=== PATIENT | female | born 1950 | race Caucasian/White ===

== ENCOUNTER 2017-03-09 08:25 | Inpatient (IN) | payer MEDICARE, BC ==
[~2017-03-09] VITALS: Ht 167.6 cm; Wt 96.0 kg
[2017-03-09 08:27] VITALS: BP 175/81; PULSE 101; RESP 18; TEMP 99.3; O2SAT 98
[2017-03-09] MEDS ORDERED: CLAR10CA3 PO (08:33)
[2017-03-09] MEDS ORDERED: ADVA115A INH (08:33)
[2017-03-09] MEDS ORDERED: VENTAER INH (08:33)
[2017-03-09] MEDS ORDERED: LOSA50TA2 PO (08:33)
[2017-03-09 08:39] VITALS: BP 145/70; PULSE 98; RESP 17; O2SAT 97
[2017-03-09] MEDS ORDERED: ONDANSETRON HCL 4 MG/2 ML VIAL IVP ONE (08:45)
[2017-03-09] MEDS ORDERED: MORPHINE SULFATE 4 MG/ML INJ IV PUSH ONE ×2 (08:45→11:45)
--- NOTE | 2017-03-09 08:50 | PD ---
HPI Chief Complaint: GI Complaint Time Seen by Provider: 08:39 Travel History International Travel<30 days: No Contact w/Intl Traveler<30days: No Traveled to known affect area: No History of Present Illness HPI 66yo F with PMH of HTN, asthma, diverticulitis presents to the ED with c/o abdominal pain since yesterday. Pain started more periumbilical and now it is in the right upper and right lower abdomen. Associated with nausea. [place] warm but didnt have fever. Had diverticulitis in May and felt similar. Pain is sharp, constant, worst today. Denies any chest pain, sob, vomiting, dysuria, hematuria, diarrhea, vaginal bleeding or discharge. Pt had and partial hysterectomy for fibroids. PFSH Past Medical History Asthma: Yes Hypertension: Yes Past Surgical History Section: Yes (X1) Hysterectomy: Yes (PARTIAL) Social History Alcohol Use: No Tobacco Use: No Substance Use: No Allergies-Medications (Allergen,Severity, Reaction): Coded Allergies: No Known Allergies (Unverified , 03/09/17) Reported Meds & Prescriptions Reported Meds & Active Scripts Active [place] (Hydrocodone-Acetaminophen) 7.5-325 mg Tab 1-2 Tab PO Q4H PRN Reported Ventolin Hfa 18 GM Inh (Albuterol Sulfate) 90 Mcg/Act Aer 2 Puff INH Q4H PRN Losartan-Hydrochlorothiazide 50-12.5 Mg Tab 1 Tab PO DAILY Claritin (Loratadine) 10 Mg Cap 10 Mg PO DAILY Advair Hfa 12 GM Inh (Fluticasone-Salmeterol 12 GM Inh) 115-21 Mcg/Act Aer 2 Puff INH BID Review of Systems Except as stated in HPI: all other systems reviewed are Neg Physical Exam Narrative GENERAL: 66yo F in mild distress. SKIN: Focused skin assessment warm/dry. HEAD: Atraumatic. Normocephalic. CARDIOVASCULAR: Regular rate and rhythm. No murmur appreciated. RESPIRATORY: No accessory muscle use. Clear to auscultation. Breath sounds equal bilaterally. GASTROINTESTINAL: Abdomen soft, +TTP Epigastric, RLQ, RUQ. No rebound tenderness or guarding. MUSCULOSKELETAL: No obvious deformities. No clubbing. No cyanosis. No edema. NEUROLOGICAL: Awake and alert. No obvious cranial nerve deficits. Motor grossly within normal limits. Normal speech. PSYCHIATRIC: Appropriate mood and affect; insight and judgment normal. Data Data Last Documented VS Vital Signs Date Time Temp Pulse Resp B/P (MAP) Pulse Ox O2 Delivery O2 Flow Rate FiO2 03/09/17 08:39 98 17 145/70 (95) 97 Room Air 03/09/17 08:27 99.3 Orders Orders Complete Blood Count With Diff (03/09/17 08:45) Comprehensive Metabolic Panel (03/09/17 08:45) Lipase (03/09/17 08:45) Prothrombin Time / Inr (Pt) (03/09/17 08:45) Act Partial Throm Time (Ptt) (03/09/17 08:45) Urinalysis - C+S If Indicated (03/09/17 08:45) Ct Abd/Pel W Iv Contrast(Rout) (03/09/17 08:45) Morphine Inj (Morphine Inj) (03/09/17 08:45) Ondansetron Inj (Zofran Inj) (03/09/17 08:45) Electrocardiogram (03/09/17 ) Iohexol 350 Inj (Omnipaque 350 Inj) (03/09/17 10:15) Sodium Chlor 0.9% 1000 Ml Inj (Ns 1000 M (03/09/17 11:00) NPO (03/09/17 11:29) Piperacil-Tazo 3.375 Gm Premix (Zosyn 3. (03/09/17 11:45) Morphine Inj (Morphine Inj) (03/09/17 11:45) Consult General Surgery (03/09/17 ) Admit Order (Ed Use Only) (03/09/17 12:18) Labs Laboratory Tests Test 03/09/17 08:44 03/09/17 10:45 White Blood Count 14.1 TH/MM3 Red Blood Count 5.63 MIL/MM3 Hemoglobin 16.7 GM/DL Hematocrit 47.8 % Mean Corpuscular Volume 84.9 FL Mean Corpuscular Hemoglobin 29.7 PG Mean Corpuscular Hemoglobin Concent 35.0 % Red Cell Distribution Width 13.6 % Platelet Count 256 TH/MM3 Mean Platelet Volume 8.6 FL Neutrophils (%) (Auto) 88.0 % Lymphocytes (%) (Auto) 7.9 % Monocytes (%) (Auto) 3.6 % Eosinophils (%) (Auto) 0.1 % Basophils (%) (Auto) 0.4 % Neutrophils # (Auto) 12.4 TH/MM3 Lymphocytes # (Auto) 1.1 TH/MM3 Monocytes # (Auto) 0.5 TH/MM3 Eosinophils # (Auto) 0.0 TH/MM3 Basophils # (Auto) 0.1 TH/MM3 CBC Comment DIFF FINAL Differential Comment Prothrombin Time 11.0 SEC Prothromb Time International Ratio 1.1 RATIO Activated Partial Thromboplast Time 27.4 SEC Blood Urea Nitrogen 9 MG/DL Creatinine 0.95 MG/DL Random Glucose 129 MG/DL Total Protein 7.9 GM/DL Albumin 4.0 GM/DL Calcium Level 9.3 MG/DL Alkaline Phosphatase 93 U/L Aspartate Amino Transf (AST/SGOT) 12 U/L Alanine Aminotransferase (ALT/SGPT) 32 U/L Total Bilirubin 1.0 MG/DL Sodium Level 137 MEQ/L Potassium Level 3.4 MEQ/L Chloride Level 103 MEQ/L Carbon Dioxide Level 25.8 MEQ/L Anion Gap 8 MEQ/L Estimat Glomerular Filtration Rate 59 ML/MIN Lipase 70 U/L Urine Color LIGHT-YELLOW Urine Turbidity CLEAR Urine pH 7.5 Urine Specific [place] GREATER THAN 1.050 Urine Protein TRACE mg/dL Urine Glucose (UA) NEG mg/dL Urine Ketones NEG mg/dL Urine Occult Blood NEG Urine Nitrite NEG Urine Bilirubin NEG Urine Urobilinogen LESS THAN 2.0 MG/DL Urine Leukocyte Esterase SMALL Urine RBC 1 /hpf Urine WBC 2 /hpf Urine Squamous Epithelial Cells 14 /hpf Microscopic Urinalysis Comment CULT NOT INDICATED MDM Medical Decision Making Medical Screen Exam Complete: Yes Emergency Medical Condition: Yes Interpretation(s) EKG: NSR 84bpm. 1st AV block. Q waves III, aVF. No ST segment elevation or depression. Differential Diagnosis Appendicitis vs. diverticulitis vs. cholecystitis vs. pancreatitis vs. peptic ulcer disease Narrative Course 66yo F with abdominal pain since yesterday. Started in periumbilical region and now it is in the right lower abdomen. Labs reviewed, leukocytosis at 14.1. Elevated H/H. Lipase normal. LFTs normal. UA negative. CT a/p showed abnormal appendix diagnostic of acute appendicitis. There is also a left ovarian cyst, pt informed to follow up with [facility] there. Pt given zofran and morphine and reevaluated at bedside. Still with pain so given another dose of morphine and also NS IVF and zosyn. Discussed with Dr. Garcia and he will see the patient today. Discussed with resident physician and admitted to Dr. Trujillo's service. Diagnosis Primary Impression: Acute appendicitis Qualified Codes: K35.80 - Unspecified acute appendicitis Admitting Information Admitting Physician Requests: Admit Scripts Hydrocodone-Acetaminophen ([place]) 7.5-325 mg Tab 1-2 TAB PO Q4H Y for PAIN, #30 TAB 0 Refills Prov: Chalino Garcia MD 03/09/17 Lisy Greco DO Mar 09, 2017 08:50
[2017-03-09 09:11] LABS: AUTOMATED NEUTROPHIL # 12.4 TH/MM3 (1.8-7.7); BASOPHIL # 0.1 TH/MM3 (0-0.2); BASOPHIL % 0.4 % (0.0-2.0); EOSINOPHIL % 0.1 % (0.0-4.0); HEMATOCRIT 47.8 % (35.0-46.0); HEMO FLAGS DIFF FINAL; LYMPH % 7.9 % (9.0-44.0); LYMPHOCYTE # 1.1 TH/MM3 (1.0-4.8); MEAN CELL VOLUME 84.9 FL (80.0-100.0); MEAN CORPUSCULAR HEMOGLOBIN 29.7 PG (27.0-34.0); MONO % 3.6 % (0.0-8.0); PLATELET COUNT 256 TH/MM3 (150-450); RED BLOOD COUNT 5.63 MIL/MM3 (4.00-5.30); RED CELL DISTRIBUTION WIDTH 13.6 % (11.6-17.2); WHITE BLOOD COUNT 14.1 TH/MM3 (4.0-11.0)
[2017-03-09 09:17] LABS: APTT (PATIENT) 27.4 SEC (24.3-30.1); INTERNATIONAL NORMALIZED RATIO 1.1 RATIO
[2017-03-09 09:27] LABS: ANION GAP 8 MEQ/L (5-15); AST (GOT) 12 U/L (15-37); BICARBONATE 25.8 MEQ/L (21.0-32.0); BLOOD UREA NITROGEN 9 MG/DL (7-18); CHLORIDE 103 MEQ/L (98-107); GLOMERULAR FILTRATION RATE 59 ML/MIN (>89); POTASSIUM 3.4 MEQ/L (3.5-5.1); SODIUM (NA) 137 MEQ/L (136-145)
[2017-03-09 09:28] LABS: ALT (GPT) 32 U/L (10-53)
[2017-03-09 09:31] LABS: ALKALINE PHOSPHATASE 93 U/L (45-117)
[2017-03-09] MEDS ORDERED: IOHEXOL 350 MG/ML 10 ML VIAL (for RAD DIAG) IVCONTRAST ONE (10:15)
[2017-03-09] MEDS ORDERED: SODIUM CHLOR 0.9% 1000 ML INJ 1,000 ML IV ONE (11:00)
[2017-03-09 11:21] LABS: BLOOD, URINE NEG (NEG); GLUCOSE,URINE NEG (NEG); KETONE, URINE NEG (NEG); NITRITE,URINE NEG (NEG); PH, URINE 7.5 (5.0-8.5); SQUAMOUS EPITHELIAL CELL URINE 14 /hpf (0-5); URINE COLOR LIGHT-YELLOW (YELLW/STRAW)
--- NOTE | 2017-03-09 11:22 | RADRPT ---
EXAM DATE/TIME: 03/09/2017 10:09 [facility] COMPARISON: No previous studies available for comparison. INDICATIONS : Right lower quadrant pain IV CONTRAST: 87 cc Omnipaque 350 (iohexol) IV ORAL CONTRAST: No oral contrast ingested. RADIATION DOSE: xxx CTDIvol (mGy) MEDICAL HISTORY : Hypertension. SURGICAL HISTORY : Hysterectomy. ENCOUNTER: Initial ACUITY: 1 day PAIN SCALE: 7/10 LOCATION: Right lower quadrant TECHNIQUE: Volumetric scanning of the abdomen and pelvis was performed. Using automated exposure control and ad justment of the mA and/or kV according to patient size, radiation dose was kept as low as reasonably achievable to obtain optimal diagnostic quality images. DICOM format image data is available electro nically for review and comparison. FINDINGS: LOWER LUNGS: The visualized lower lungs are clear. LIVER: Homogeneous density without lesion. There is no dilation of the biliary tree. No calcified gallston es. SPLEEN: The spleen measures 13.7 cm. PANCREAS: Within normal limits. KIDNEYS: Normal in size and shape. There is no mass, stone or hydronephrosis. Incidental 7 mm low density les ion at the left upper pole kidney is too small to characterize. ADRENAL GLANDS: Within normal limits. VASCULAR: There is no aortic aneurysm. There is mild atherosclerotic disease. BOWEL/MESENTERY: The stomach and small bowel are within normal limits. Terminal ileum is normal. The appendix is abnor mal it measures up to 17 mm in diameter and is partially filled with fluid and demonstrates periappen diceal inflammation. Air is present within the appendiceal lumen. No appendicolith is identified. Th ere is sigmoid diverticulosis. There is no free intraperitoneal air or fluid. ABDOMINAL WALL: Within normal limits. RETROPERITONEUM: There is no lymphadenopathy. BLADDER: No wall thickening or mass. REPRODUCTIVE: Uterus is absent. Left adnexal/ovarian cystic lesion is present measuring 3.2 cm. It appears simple o n this exam. INGUINAL: There is no lymphadenopathy or hernia. MUSCULOSKELETAL: There are mild degenerative changes of the lumbar spine. CONCLUSION: 1. Abnormal appendix diagnostic of acute appendicitis. There is surrounding inflammation and it is ab normally dilated. 2. There is a 3.2 cm left ovarian/adnexal cystic lesion. This presumably arises from the left ovary g iven the anatomic location. Since the patient is postmenopausal, suggest followup imaging in 6 months with ultrasound and comparison with any prior imaging studies. José Miguel Banks MD on March 09, 2017 at 11:12 Board Certified Radiologist. This report was verified electronically.
[2017-03-09 11:23] LABS: COMMENT (UR) CULT NOT INDICATED; CULTURE IF INDICATED CULT NOT INDICATED
[2017-03-09] MEDS ORDERED: PIPERACIL-TAZO 3.375 GM PREMIX 50 ML IV ONE (11:45)
--- NOTE | 2017-03-09 12:30 | HHI.HP ---
[facility] Service Family Medicine Primary Care Physician No Primary Care Physician Admission Diagnosis Acute appendicitis Diagnoses: International Travel<30 Days: No Contact w/Intl Traveler<30days: No Known Affected Area: No History of Present Illness Patient is 66 year old female who presents with right, lower abdominal pain since Thursday. Patient reports feeling heaviness in her mid-epigastric region after dinner on Thursday. When she woke up on Thursday morning, she noticed a sharp pain in her right lower abdominal quadrant. Patient says she woke up at her regular time and wasn't woken up by pain but noticed the pain as soon as she was awake, lying in bed. The pain is nonradiating, sharp, piercing, 6/10, located in right lower quadrant. Pain is worse when patient moves. She feels better when laying still. Pain on morphine is 5/10. The pain reminded her of the pain she experienced when she had diverticulitis at the end of May of this year. Her primary care physician said that if she experiences similar pain to start on a liquid diet. Patient only consumed liquid foods yesterday but the change did not provide patient with relief. Patient slept in a recliner all night, tossing and turning. She said that pain worsened throughout the night and this morning. Patient experienced nausea yesterday. She vomited once today after receiving morphine. She denies diarrhea and constipation. She experienced dizziness yesterday, which she associated with eating little/liquid diet only. She denies fever but admits to hot flashes and some chills. She denies sweating. She denies chest pain, heart palpitations and shortness of breath. Of note, patient's last PO intake, armaan rosi, was at 7:00 or 7:30 a.m. today. (Theresa Shahid MD R1) Review of Systems Constitutional: COMPLAINS OF: Fatigue, Fever ("Hot flash"), Chills (Minimal ), Dizziness, DENIES: Diaphoretic episodes, Weight gain, Weight loss, Change in appetite Eyes: DENIES: Blurred vision, Diplopia, Eye pain, Vision loss, Double Vision Ears, nose, mouth, throat: DENIES: Tinnitus, Hearing loss, Nasal discharge, Throat pain, Hoarseness, Ear Pain, Running Nose Respiratory: COMPLAINS OF: Cough (At baseline, astham related ), DENIES: Wheezing, Sputum production, Shortness of breath Cardiovascular: DENIES: Chest pain, Palpitations, Lower Extremity Edema Gastrointestinal: COMPLAINS OF: Abdominal pain, Nausea, Vomiting, Anorexia, DENIES: Black stools, Bloody stools, Constipation, Diarrhea Genitourinary: COMPLAINS OF: Urinary frequency (Associates increased frequency due to liquid diet), DENIES: Urinary incontinence, Urgency, Hematuria Musculoskeletal: DENIES: Joint pain, Muscle aches, Back pain, Neck pain Integumentary: DENIES: Rash, Nail changes Hematologic/lymphatic: DENIES: Bruising Neurologic: DENIES: Headache Psychiatric: DENIES: Anxiety, Confusion, Mood changes, Depression (Theresa Shahid MD R1) Past Family Social History Past Medical History Asthma - diagnosed 7 years ago; sudden cough, without wheezing; inhaler use daily HTN Past Surgical History Tonsillectomy - 6 years old x1 - 1984 Partial hysterectomy - 15 years ago; uncontrollable bleeding due to fibroids Reported Medications Ventolin Hfa 18 GM Inh (Albuterol Sulfate) 90 Mcg/Act Aer 2 Puff INH Q4H PRN Losartan-Hydrochlorothiazide 50-12.5 Mg Tab 1 Tab PO DAILY Claritin (Loratadine) 10 Mg Cap 10 Mg PO DAILY Advair Hfa 12 GM Inh (Fluticasone-Salmeterol 12 GM Inh) 115-21 Mcg/Act Aer 2 Puff INH BID (Theresa Shahid MD R1) Allergies: Coded Allergies: No Known Allergies (Unverified , 03/09/17) Active Ordered Medications Current Medications Medications (Trade) Dose Ordered Sig/Kai Route Start Time Stop Time Status Last Admin Non-Formulary Medication 2 puff BID INH 03/09/17 13:00 UNV Non-Formulary Medication 1 tab DAILY PO 03/09/17 13:00 UNV Sodium Chloride 1,000 ml @ 100 mls/hr Q10H IV 03/09/17 13:19 UNV (NS Flush) 2 ml UNSCH PRN IV FLUSH 03/09/17 13:30 UNV (NS Flush) 2 ml BID IV FLUSH 03/09/17 13:30 UNV (Tylenol) 650 mg Q4H PRN PO 03/09/17 13:30 UNV (Zofran Inj) 4 mg Q6H PRN IVP 03/09/17 13:30 UNV ([place] 5-325 Mg) 1 tab Q4H PRN PO 03/09/17 13:30 UNV ([place] 7.5-325 Mg) 1 tab Q4H PRN PO 03/09/17 13:30 UNV (Morphine Inj) 2 mg Q3H PRN IV PUSH 03/09/17 13:30 UNV (Narcan Inj) 0.4 mg UNSCH PRN IV PUSH 03/09/17 13:30 UNV (Surekha-Colace) 1 tab BID PO 03/09/17 13:30 UNV (Milk Of Magnesia Liq) 30 ml Q12H PRN PO 03/09/17 13:30 UNV (Senokot) 17.2 mg Q12H PRN PO 03/09/17 13:30 UNV (Dulcolax Supp) 10 mg DAILY PRN RECTAL 03/09/17 13:30 UNV (Lactulose Liq) 30 ml DAILY PRN PO 03/09/17 13:30 UNV (Duoneb Neb) 1 ampule Q6HR NEB PRN NEB 03/09/17 13:30 UNV Family History Father (passed when 48 years old)- DC Mother (passed when 87 years old) - stroke, colon cancer Social History Lives with , for 42 years. 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 Alcohol: At most, once per month Tobacco: Never a smoker Drugs: Never (Theresa Shahid MD R1) Physical Exam Vital Signs Vital Signs Date Time Temp Pulse Resp B/P (MAP) Pulse Ox O2 Delivery O2 Flow Rate FiO2 03/09/17 08:39 98 17 145/70 (95) 97 Room Air 03/09/17 08:27 99.3 101 18 175/81 (112) 98 Physical Exam GENERAL: This is a well-nourished, well-developed, obese patient, in no apparent distress. SKIN: No rashes, ecchymoses or lesions. Warm and dry. HEAD: Atraumatic. Normocephalic. EYES: Pupils equal round. Extraocular motions intact. No scleral icterus. No injection or drainage. ENT: Nose without bleeding, purulent drainage or septal hematoma. Airway patent. NECK: Trachea midline. No JVD or lymphadenopathy. Supple, nontender, no meningeal signs. CARDIOVASCULAR: Regular rate and rhythm without murmurs, gallops, or rubs. RESPIRATORY: Clear to auscultation. Breath sounds equal bilaterally. No wheezes , rales, or rhonchi. GASTROINTESTINAL: Abdomen soft, nondistended. Tenderness upon palpation in all quadrants, most severe in right lower quadrant, despite morphine. Some guarding. MUSCULOSKELETAL: Extremities without clubbing, cyanosis, or edema. No joint tenderness, effusion, or edema noted. No calf tenderness. NEUROLOGICAL: Awake and alert. Cranial nerves II through XII intact. Motor and sensory grossly within normal limits. Normal speech. Laboratory Laboratory Tests Test 03/09/17 08:44 03/09/17 10:45 White Blood Count 14.1 Red Blood Count 5.63 Hemoglobin 16.7 Hematocrit 47.8 Mean Corpuscular Volume 84.9 Mean Corpuscular Hemoglobin 29.7 Mean Corpuscular Hemoglobin Concent 35.0 Red Cell Distribution Width 13.6 Platelet Count 256 Mean Platelet Volume 8.6 Neutrophils (%) (Auto) 88.0 Lymphocytes (%) (Auto) 7.9 Monocytes (%) (Auto) 3.6 Eosinophils (%) (Auto) 0.1 Basophils (%) (Auto) 0.4 Neutrophils # (Auto) 12.4 Lymphocytes # (Auto) 1.1 Monocytes # (Auto) 0.5 Eosinophils # (Auto) 0.0 Basophils # (Auto) 0.1 CBC Comment DIFF FINAL Differential Comment Prothrombin Time 11.0 Prothromb Time International Ratio 1.1 Activated Partial Thromboplast Time 27.4 Blood Urea Nitrogen 9 Creatinine 0.95 Random Glucose 129 Total Protein 7.9 Albumin 4.0 Calcium Level 9.3 Alkaline Phosphatase 93 Aspartate Amino Transf (AST/SGOT) 12 Alanine Aminotransferase (ALT/SGPT) 32 Total Bilirubin 1.0 Sodium Level 137 Potassium Level 3.4 Chloride Level 103 Carbon Dioxide Level 25.8 Anion Gap 8 Estimat Glomerular Filtration Rate 59 Lipase 70 Urine Color LIGHT-YELLOW Urine Turbidity CLEAR Urine pH 7.5 Urine Specific [place] GREATER THAN 1.050 Urine Protein TRACE Urine Glucose (UA) NEG Urine Ketones NEG Urine Occult Blood NEG Urine Nitrite NEG Urine Bilirubin NEG Urine Urobilinogen LESS THAN 2.0 Urine Leukocyte Esterase SMALL Urine RBC 1 Urine WBC 2 Urine Squamous Epithelial Cells 14 Microscopic Urinalysis Comment CULT NOT INDICATED (Theresa Shahid MD R1) Result Diagram: 03/09/1744 03/09/17843 Imaging Last Impressions Abdomen/Pelvis CT 03/09/17844 Signed Impressions: Service Date/Time: Thursday, March 09, 2017 10:09 - CONCLUSION: 1. Abnormal appendix diagnostic of acute appendicitis. There is surrounding inflammation and it is abnormally dilated. 2. There is a 3.2 cm left ovarian/adnexal cystic lesion. This presumably arises from the left ovary given the anatomic location. Since the patient is postmenopausal, suggest followup imaging in 6 months with ultrasound and comparison with any prior imaging studies. José Miguel Banks MD (Theresa Shahid MD R1) Septic Shock Reassessment Heart: Regular rate and rhythm Lungs: Clear Skin: Warm, Dry (Theresa Shahid MD R1) Caprini VTE Risk Assessment Caprini VTE Risk Assessment: Mod/High Risk (score >= 2) VTE Pharm Contraindication: Postop bleeding (surgery today) Caprini Risk Assessment Model Point Value = 1 Point Value = 2 Point Value = 3 Point Value = 5 Age 41-60 Minor surgery BMI > 25 kg/m2 Swollen legs Varicose veins or History of unexplained or recurrent spontaneous Oral contraceptives or hormone replacement Sepsis (< 1 month) Serious lung disease, including pneumonia (< 1 month) Abnormal pulmonary function Acute myocardial infarction Congestive heart failure (< 1 month) History of inflammatory bowel disease Medical patient at bed rest Age 61-74 Arthroscopic surgery Major open surgery (> 45 min) Laparoscopic surgery (> 45 min) Malignancy Confined to bed (> 72 hours) Immobilizing plaster cast Central venous access Age >= 75 History of VTE Family history of VTE Factor V Leiden Prothrombin [id number] Lupus anticoagulant Anticardiolipin antibodies Elevated serum homocysteine Heparin-induced thrombocytopenia Other congenital or acquired thrombophilia Stroke (< 1 month) Elective arthroplasty Hip, pelvis, or leg fracture Acute spinal cord injury (< 1 month) Prophylaxis Regimen Total Risk Factor Score Risk Level Prophylaxis Regimen 0-1 Low Early ambulation 2 Moderate Order ONE of the following: *Sequential Compression Device (SCD) *Heparin 5000 units SQ BID 3-4 Higher Order ONE of the following medications: *Heparin 5000 units SQ TID *Enoxaparin/Lovenox 40 mg SQ daily (WT < 150 kg, CrCl > 30 mL/min) *Enoxaparin/Lovenox 30 mg SQ daily (WT < 150 kg, CrCl > 10-29 mL/min) *Enoxaparin/Lovenox 30 mg SQ BID (WT < 150 kg, CrCl > 30 mL/min) AND/OR *Sequential Compression Device (SCD) 5 or more Highest Order ONE of the following medications: *Heparin 5000 units SQ TID (Preferred with Epidurals) *Enoxaparin/Lovenox 40 mg SQ daily (WT < 150 kg, CrCl > 30 mL/min) *Enoxaparin/Lovenox 30 mg SQ daily (WT < 150 kg, CrCl > 10-29 mL/min) *Enoxaparin/Lovenox 30 mg SQ BID (WT < 150 kg, CrCl > 30 mL/min) AND *Sequential Compression Device (SCD) (Theresa Shahid MD R1) Assessment and Plan Assessment and Plan Patient is 66 year old female who presents with right, lower abdominal pain since Thursday. CT with evidence of abnormal appendix diagnostic of acute appendicitis. Admit for appendectomy. Code Status Full code. Discussed Condition With Drs. Trujillo and Ambrose. (Theresa Shahid MD R1) Attending Attestation Patient seen and examined. Case reviewed and discussed with the resident team. Agree with plan of care as discussed with me and documented in the resident note. she was seen by me in the ED on admission with the residents (Avril Trujillo MD) Problem List: (1) Acute appendicitis ICD Codes: K35.80 - Unspecified acute appendicitis Status: Acute Plan: Patient with right lower abdominal pain since Thursday. CT with evidence of abnormal appendix diagnostic of acute appendicitis. Labs: * WBC 14.1 with 88% neutrophils. * Lipase 70. * AST/ALT 12/32. Imaging: * Abdomen/Pelvis CT: Abnormal appendix diagnostic of acute appendicitis. There is surrounding inflammation and it is abnormally dilated. There is a 3.2 cm left ovarian/adnexal cystic lesion. This presumably arises from the left ovary given the anatomic location. Since the patient is postmenopausal, suggest follow -up imaging in 6 months with ultrasound and comparison with any prior imaging studies. Orders: * Surgery consult. * NPO. * Zosyn 3.375 mg q8hr IV. * NS 1,000 ml at 100 mls/hr IV. * Acetaminophen 650mg q4hr PO PRN for Temp >100.4 and Pain 1-2. * [place] 5-325mg q4hr PO PRN Pain 3-5. * [place] 7.5-325mg q4hr PO PRN Pain 6-10. * Morphine 2mg q3hr IV PRN for Breakthrough pain. (2) HTN (hypertension) ICD Codes: I10 - Essential (primary) hypertension Status: Chronic Plan: Continue home medication. * Losartan 50mg daily PO. * Hydrochlorothiazide 12.5mg daily PO. (3) Asthma ICD Codes: J45.909 - Unspecified asthma, uncomplicated Status: Chronic Plan: Patient with some respiratory distress following previous surgery. Medications: * DuoNeb 1 ampule q6hr PRN for shortness of breath and wheezing. * May consider steroids postoperatively. Orders: * Incentive spirometer. (4) Fluid, Electrolyte, Nutrition and Prophylaxis Status: Acute Plan: Fluids: * NS 1,000 ml at 100 mls/hr IV. Electrolytes: * Monitor and replete as necessary. Nutrition: * NPO. Prophylaxis: * SCDs. * Prophylaxis not indicated at this time as patient is awaiting surgery. (Theresa Shahid MD R1) Physician Certification 2 Midnight Certification Type: Admission for Inpatient Services Order for Inpatient Services The services are ordered in accordance with Medicare regulations or non- Medicare payer requirements, as applicable. In the case of services not specified as inpatient-only, they are appropriately provided as inpatient services in accordance with the 2-midnight benchmark. Estimated LOS (days): 1 days is the estimated time the patient will need to remain in the hospital, assuming treatment plan goals are met and no additional complications. Post-Hospital Plan: Home (Theresa Shahid MD R1) Problem Qualifiers (1) Acute appendicitis: Qualified Codes: K35.80 - Unspecified acute appendicitis (2) HTN (hypertension): Qualified Codes: I10 - Essential (primary) hypertension Theresa Shahid MD R1 Mar 09, 2017 12:30 Avril Trujillo MD Mar 10, 2017 10:50
[2017-03-09] MEDS ORDERED: NON-FORMULARY DRUG (Losartan-Hydrochlorothiazide 1 TAB) PO SCH (13:00)
[2017-03-09] MEDS ORDERED: [UNRECOGNIZED DRUG - OTHER] INH SCH (13:00)
[2017-03-09] MEDS ORDERED: FLUTICASONE SALMETEROL INH SCH (13:00)
[2017-03-09] MEDS: SODIUM CHLOR 0.9% 1000 ML INJ 1,000 ML IV SCH ×2 (13:19→21:07)
[2017-03-09] MEDS ORDERED: SENNOSIDES 8.6 MG TAB PO PRN (13:30)
[2017-03-09] MEDS ORDERED: ACETAMINOPHEN/HYDROcodone 325 MG/7.5 MG TAB PO PRN (13:30)
[2017-03-09] MEDS: SODIUM CHLORIDE 0.9% FLUSH 10 ML FLUSH IV FLUSH SCH ×2 (13:30→21:00)
[2017-03-09] MEDS ORDERED: BISACODYL 10 MG SUPP RECTAL PRN (13:30)
[2017-03-09] MEDS ORDERED: LACTULOSE SYRUP 20 GM/30 ML CUP PO PRN (13:30)
[2017-03-09] MEDS ORDERED: ACETAMINOPHEN/HYDROcodone 325 MG/5 MG TAB PO PRN (13:30)
[2017-03-09] MEDS ORDERED: SODIUM CHLORIDE 0.9% FLUSH 10 ML FLUSH IV FLUSH PRN (13:30)
[2017-03-09] MEDS ORDERED: ACETAMINOPHEN 325 MG TAB PO PRN (13:30)
[2017-03-09] MEDS ORDERED: ONDANSETRON HCL 4 MG/2 ML VIAL IVP PRN (13:30)
[2017-03-09] MEDS ORDERED: MORPHINE SULFATE 4 MG/ML INJ IV PUSH PRN (13:30)
[2017-03-09] MEDS ORDERED: NALOXONE HCL 0.4 MG/ML AMP IV PUSH PRN (13:30)
[2017-03-09] MEDS ORDERED: RESP: ALBUTEROL 2.5 MG/IPRATROPIUM 0.5 MG NEB (PRN) NEB (13:30)
[2017-03-09] MEDS ORDERED: MAGNESIUM HYDROXIDE SUSP 30 ML CUP PO PRN (13:30)
[2017-03-09] MEDS: DOCUSATE SODIUM 50 MG/SENNA 8.6 MG TAB PO SCH ×2 (13:30→21:00)
[2017-03-09] MEDS: LOSARTAN 50 MG TAB PO SCH (13:54)
[2017-03-09] MEDS: HYDROCHLOROTHIAZIDE 12.5 MG CAP PO SCH (13:55)
--- NOTE | 2017-03-09 14:25 | PD.CONS ---
cc: Chalino Garcia MD [facility] Service General Surgery Consult Requested By Dr. Greco Reason for Consult Acute appendicitis Primary Care Physician No Primary Care Physician History of Present Illness This is a 66 year female with a past medical history of hypertension, asthma, diverticulosis. The patient states she has an approximate 1 day history of dull type abdominal pain. She has associated nausea and one small episode of emesis. A CT abdomen and pelvis was obtained which shows acute appendicitis. She has an elevated white blood cell count of 14. She last had a sip of water at 0730 this morning. A General Surgery consultation has been requested for consideration for laparoscopic appendectomy. Review of Systems Constitutional: DENIES: Fatigue, Change in appetite Endocrine: DENIES: Polydipsia, Polyuria, Polyphagia Eyes: DENIES: Diplopia Ears, nose, mouth, throat: DENIES: Hearing loss Respiratory: DENIES: Apneas Cardiovascular: DENIES: Chest pain Gastrointestinal: COMPLAINS OF: Abdominal pain, Nausea, Vomiting Genitourinary: DENIES: Urinary frequency Musculoskeletal: DENIES: Joint pain Integumentary: DENIES: Abnormal pigmentation Hematologic/lymphatic: DENIES: Bruising Immunologic/allergic: DENIES: Eczema Neurologic: DENIES: Headache, Localized weakness Psychiatric: DENIES: Confusion, Mood changes, Depression Past Family Social History Past Medical History Asthma Hypertension Diverticulosis Past Surgical History Laparoscopic partial hysterectomy 1 Reported Medications Claritin Albuterol inhaler Losartan-hydrochlorothiazide Advair Allergies: Coded Allergies: No Known Allergies (Unverified , 03/09/17) Active Ordered Medications Current Medications Medications (Trade) Dose Ordered Sig/Kai Route Start Time Stop Time Status Last Admin Patient Own Medication PT OWN MED: ADVAIR ... BID INH 03/09/17 13:00 Future Hold Sodium Chloride 1,000 ml @ 100 mls/hr Q10H IV 03/09/17 13:19 (NS Flush) 2 ml UNSCH PRN IV FLUSH 03/09/17 13:30 (NS Flush) 2 ml BID IV FLUSH 03/09/17 13:30 03/09/17 13:30 (Tylenol) 650 mg Q4H PRN PO 12/4/17 13:30 (Zofran Inj) 4 mg Q6H PRN IVP 03/09/17 13:30 (Ethel 5-325 Mg) 1 tab Q4H PRN PO 03/09/17 13:30 (Ethel 7.5-325 Mg) 1 tab Q4H PRN PO 03/09/17 13:30 (Morphine Inj) 2 mg Q3H PRN IV PUSH 03/09/17 13:30 (Narcan Inj) 0.4 mg UNSCH PRN IV PUSH 03/09/17 13:30 (Surekha-Colace) 1 tab BID PO 03/09/17 13:30 (Milk Of Magnesia Liq) 30 ml Q12H PRN PO 03/09/17 13:30 (Senokot) 17.2 mg Q12H PRN PO 03/09/17 13:30 (Dulcolax Supp) 10 mg DAILY PRN RECTAL 03/09/17 13:30 (Lactulose Liq) 30 ml DAILY PRN PO 03/09/17 13:30 (Duoneb Neb) 1 ampule Q6HR NEB PRN NEB 03/09/17 13:30 (Cozaar) 50 mg DAILY PO 03/09/17 13:54 (Microzide) 12.5 mg DAILY PO 03/09/17 13:55 Family History Noncontributory Social History Denies tobacco use Denies EtOH use Denies illicit drug use [facility]. Physical Exam Vital Signs Vital Signs Date Time Temp Pulse Resp B/P (MAP) Pulse Ox O2 Delivery O2 Flow Rate FiO2 03/09/17 08:39 98 17 145/70 (95) 97 Room Air 03/09/17 08:27 99.3 101 18 175/81 (112) 98 Physical Exam GENERAL: Pleasant 66 year old female resting in bed in no acute distress. SKIN: Warm and dry. HEAD: Atraumatic. Normocephalic. EYES: Pupils equal and round. No scleral icterus. No injection or drainage. ENT: No nasal bleeding or discharge. Mucous membranes pink and moist. NECK: Trachea midline. CARDIOVASCULAR: Regular rate and rhythm. RESPIRATORY: No accessory muscle use. Clear to auscultation. Breath sounds equal bilaterally. GASTROINTESTINAL: Abdomen soft. RLQ tenderness with palpation. Obese abdomen. Very faint laparoscopic trocar sites visualized. Low transverse well healed scar. No visible hernias. MUSCULOSKELETAL: Extremities without clubbing, cyanosis, or edema. No obvious deformities. NEUROLOGICAL: Awake and alert. No obvious cranial nerve deficits. Motor grossly within normal limits. Five out of 5 muscle strength in the arms and legs. Normal speech. PSYCHIATRIC: Appropriate mood and affect; insight and judgment normal. Laboratory Laboratory Tests Test 03/09/17 08:44 03/09/17 10:45 White Blood Count 14.1 Red Blood Count 5.63 Hemoglobin 16.7 Hematocrit 47.8 Mean Corpuscular Volume 84.9 Mean Corpuscular Hemoglobin 29.7 Mean Corpuscular Hemoglobin Concent 35.0 Red Cell Distribution Width 13.6 Platelet Count 256 Mean Platelet Volume 8.6 Neutrophils (%) (Auto) 88.0 Lymphocytes (%) (Auto) 7.9 Monocytes (%) (Auto) 3.6 Eosinophils (%) (Auto) 0.1 Basophils (%) (Auto) 0.4 Neutrophils # (Auto) 12.4 Lymphocytes # (Auto) 1.1 Monocytes # (Auto) 0.5 Eosinophils # (Auto) 0.0 Basophils # (Auto) 0.1 CBC Comment DIFF FINAL Differential Comment Prothrombin Time 11.0 Prothromb Time International Ratio 1.1 Activated Partial Thromboplast Time 27.4 Blood Urea Nitrogen 9 Creatinine 0.95 Random Glucose 129 Total Protein 7.9 Albumin 4.0 Calcium Level 9.3 Alkaline Phosphatase 93 Aspartate Amino Transf (AST/SGOT) 12 Alanine Aminotransferase (ALT/SGPT) 32 Total Bilirubin 1.0 Sodium Level 137 Potassium Level 3.4 Chloride Level 103 Carbon Dioxide Level 25.8 Anion Gap 8 Estimat Glomerular Filtration Rate 59 Lipase 70 Urine Color LIGHT-YELLOW Urine Turbidity CLEAR Urine pH 7.5 Urine Specific [place] GREATER THAN 1.050 Urine Protein TRACE Urine Glucose (UA) NEG Urine Ketones NEG Urine Occult Blood NEG Urine Nitrite NEG Urine Bilirubin NEG Urine Urobilinogen LESS THAN 2.0 Urine Leukocyte Esterase SMALL Urine RBC 1 Urine WBC 2 Urine Squamous Epithelial Cells 14 Microscopic Urinalysis Comment CULT NOT INDICATED Result Diagram: 03/09/1744 03/09/17843 Imaging Last 48 hours Impressions Abdomen/Pelvis CT 03/09/17844 Signed Impressions: Service Date/Time: Thursday, March 09, 2017 10:09 - CONCLUSION: 1. Abnormal appendix diagnostic of acute appendicitis. There is surrounding inflammation and it is abnormally dilated. 2. There is a 3.2 cm left ovarian/adnexal cystic lesion. This presumably arises from the left ovary given the anatomic location. Since the patient is postmenopausal, suggest followup imaging in 6 months with ultrasound and comparison with any prior imaging studies. José Miguel Banks MD Assessment and Plan Assessment and Plan 66 year old female with abdominal pain; acute appendicitis -Remain nothing by mouth for OR this afternoon -Obtain consents -Zosyn -IVF -All questions were answered -Thank you for this consult. Attending Note - Dr. Garcia Abdomen tender RLQ with guarding Findings and imaging consistent with appendicitis Risks, benefits, alternatives, convalescence and consequences discussed with patient and ; they vocalize understanding and agree to proceed with surgery. The exam, history, and the medical decision-making described in the above note were completed with the assistance of the mid-level provider. I reviewed and agree with the findings presented. I attest that I had a [id number] encounter with the patient on the same day, and personally performed and documented my assessment and findings in the medical record. Discussed Condition With Dr. Jose Boggs Mrs. Buchanan + at bedside Martha Andrea Mar 09, 2017 14:25 Chalino Garcia MD Mar 09, 2017 22:22
[2017-03-09 16:00] VITALS: BP 143/67; PULSE 86; RESP 16; TEMP 99.1; O2SAT 95
[2017-03-09] MEDS: PIPERACIL-TAZO 3.375 GM PREMIX 50 ML IV SCH ×2 (16:36→22:36)
--- NOTE | 2017-03-09 18:50 | EKG ---
Date Performed: 03/09/2017 Time Performed: 10:22:19 PTAGE: 66 years EKG: Sinus rhythm WITH FIRST DEGREE AV BLOCK INFERIOR MYOCARDIAL INFARCTION ABNORMAL ECG NO PREVIOUS TRACING DOCTOR: Chidi Cat Interpretating Date/Time 03/09/2017 18:49:16
[2017-03-09] MEDS ORDERED: BUPIVACAINE/EPINEPHRINE 0.25% PF 30 ML VIAL ONE (19:04)
[2017-03-09] MEDS ORDERED: LACTATED RINGER'S 1000 ML IV PRN (20:30)
[2017-03-09] MEDS ORDERED: SODIUM CHLORID 0.9% 500 ML IV PRN (20:30)
[2017-03-09 20:54] VITALS: BP 116/71; PULSE 72; RESP 18; TEMP 97.8; O2SAT 94
[2017-03-09] MEDS ORDERED: PIPERACIL-TAZO 3.375 GM PREMIX 50 ML IV SCH (22:45)
[2017-03-09] MEDS ORDERED: SUGAMMADEX SODIUM 200 MG/2 ML VIAL IV PUSH ONE ×2 (23:04)
--- NOTE | 2017-03-09 23:18 | HHI.PR ---
cc: Chalino Garcia MD Immediate Post Op Note Procedure Date: Mar 09, 2017 Pre Op Diagnosis: Acute Appendicitis Post Op Diagnosis: Gangrenous appendicitis Surgeon: [facility] Worker(s): Gianna Pickett CFA Procedure: Laparoscopic appendectomy Complications: None Specimen(s) removed: Appendix to pathology Estimated blood loss: 10 ml Anesthesia: General Drains: None IVF (600 ml) Patient to: PACU Patient Condition: Good Date/Time of Procedure: SEE SURGICAL CARE RECORD Chalino Garcia MD Mar 09, 2017 23:18
[2017-03-09] MEDS ORDERED: HYDR-3288 PO (23:21)
[2017-03-09] MEDS ORDERED: DO NOT ADM ANY ANTICOAGULANT DRUGS PRN (23:45)
[2017-03-10] VITALS: BP 116/54; PULSE 77; RESP 18; TEMP 98; O2SAT 93
[2017-03-10 00:55] VITALS: BP 116/54; PULSE 77; RESP 18; TEMP 98; O2SAT 93
[2017-03-10] MEDS ORDERED: MORPHINE SULFATE 4 MG/ML INJ IV PUSH PRN (01:30)
[2017-03-10 04:51] VITALS: BP 119/67; PULSE 70; RESP 18; TEMP 97.4; O2SAT 96
[2017-03-10] MEDS: SODIUM CHLOR 0.9% 1000 ML INJ 1,000 ML IV SCH (05:39)
[2017-03-10 08:00] VITALS: BP 113/59; PULSE 73; RESP 17; TEMP 97.7; O2SAT 93
[2017-03-10] MEDS: DOCUSATE SODIUM 50 MG/SENNA 8.6 MG TAB PO SCH (08:12)
[2017-03-10] MEDS: PIPERACIL-TAZO 3.375 GM PREMIX 50 ML IV SCH (08:12)
[2017-03-10] MEDS: HYDROCHLOROTHIAZIDE 12.5 MG CAP PO SCH (08:13)
[2017-03-10] MEDS: SODIUM CHLORIDE 0.9% FLUSH 10 ML FLUSH IV FLUSH SCH (08:13)
[2017-03-10] MEDS: LOSARTAN 50 MG TAB PO SCH (08:13)
[2017-03-10 09:01] LABS: AUTOMATED NEUTROPHIL # 12.4 TH/MM3 (1.8-7.7); BASOPHIL # 0.1 TH/MM3 (0-0.2); BASOPHIL % 0.4 % (0.0-2.0); HEMO FLAGS DIFF FINAL; LYMPH % 4.2 % (9.0-44.0); LYMPHOCYTE # 0.6 TH/MM3 (1.0-4.8); MEAN CELL VOLUME 85.7 FL (80.0-100.0); MEAN CORPUSCULAR HEMOGLOBIN 29.8 PG (27.0-34.0); MEAN CORPUSCULAR HGB CONC 34.7 % (32.0-36.0); NEUT % 91.4 % (16.0-70.0); PLATELET COUNT 209 TH/MM3 (150-450); RED BLOOD COUNT 4.67 MIL/MM3 (4.00-5.30); RED CELL DISTRIBUTION WIDTH 13.6 % (11.6-17.2); WHITE BLOOD COUNT 13.5 TH/MM3 (4.0-11.0)
--- NOTE | 2017-03-10 09:26 | HHI.HP ---
[facility] Service Family Medicine Primary Care Physician No Primary Care Physician Admission Diagnosis Acute appendicitis Diagnoses: (1) Acute appendicitis (2) HTN (hypertension) (3) Asthma (4) Fluid, Electrolyte, Nutrition and Prophylaxis International Travel<30 Days: No Contact w/Intl Traveler<30days: No Known Affected Area: No History of Present Illness Ms Buchanan is 66 year old female who presented with right, lower abdominal pain since Thursday. Patient reports feeling heaviness in her mid-epigastric region after dinner on Thursday. When she woke up on Thursday morning, she noticed a sharp pain in her right lower abdominal quadrant. Patient says she woke up at her regular time and wasn't woken up by pain but noticed the pain as soon as she was awake, lying in bed. The pain was nonradiating, sharp, piercing, 6/10, located in right lower quadrant. Pain is worse when patient moves. She feels better when laying still. Pain on morphine is 5/10. The pain reminded her of the pain she experienced when she had diverticulitis at the end of May of this year. Her primary care physician said that if she experiences similar pain to start on a liquid diet. Patient only consumed liquid foods yesterday but the change did not provide patient with relief. Patient slept in a recliner all night, tossing and turning. She said that pain worsened throughout the night and this morning. Patient experienced nausea yesterday. She vomited once today after receiving morphine. She denies diarrhea and constipation. She experienced dizziness yesterday, which she associated with eating little/liquid diet only. She denies fever but admits to hot flashes and some chills. She denies sweating. She denies chest pain, heart palpitations and shortness of breath. Of note, patient's last PO intake, armaan rosi, was at 7:00 or 7:30 a.m. the day of admission. She had appendicitis on her CT and had laparoscopic surgery yesterday. She feels great today and is up walking in the [place]. Anticipate D/C once she eats lunch. Review of Systems Other Constitutional: COMPLAINS OF: Fatigue, Fever ("Hot flash"), Chills (Minimal ), Dizziness, DENIES: Diaphoretic episodes, Weight gain, Weight loss, Change in appetite Eyes: DENIES: Blurred vision, Diplopia, Eye pain, Vision loss, Double Vision Ears, nose, mouth, throat: DENIES: Tinnitus, Hearing loss, Nasal discharge, Throat pain, Hoarseness, Ear Pain, Running Nose Respiratory: COMPLAINS OF: Cough (At baseline, astham related ), DENIES: Wheezing, Sputum production, Shortness of breath Cardiovascular: DENIES: Chest pain, Palpitations, Lower Extremity Edema Gastrointestinal: COMPLAINS OF: Abdominal pain, Nausea, Vomiting, Anorexia, DENIES: Black stools, Bloody stools, Constipation, Diarrhea Genitourinary: COMPLAINS OF: Urinary frequency (Associates increased frequency due to liquid diet), DENIES: Urinary incontinence, Urgency, Hematuria Musculoskeletal: DENIES: Joint pain, Muscle aches, Back pain, Neck pain Integumentary: DENIES: Rash, Nail changes Hematologic/lymphatic: DENIES: Bruising Neurologic: DENIES: Headache Psychiatric: DENIES: Anxiety, Confusion, Mood changes, Depression Past Family Social History Past Medical History Asthma - diagnosed 7 years ago; sudden cough, without wheezing; inhaler use daily HTN Past Surgical History Tonsillectomy - 6 years old x1 - 1984 Partial hysterectomy - 15 years ago; uncontrollable bleeding due to fibroids Reported Medications Reported Medications Ventolin Hfa 18 GM Inh (Albuterol Sulfate) 90 Mcg/Act Aer 2 Puff INH Q4H PRN Losartan-Hydrochlorothiazide 50-12.5 Mg Tab 1 Tab PO DAILY Claritin (Loratadine) 10 Mg Cap 10 Mg PO DAILY Advair Hfa 12 GM Inh (Fluticasone-Salmeterol 12 GM Inh) 115-21 Mcg/Act Aer 2 Puff INH BID Allergies: Coded Allergies: No Known Allergies (Unverified , 03/09/17) Family History Father (passed when 48 years old)- [place] Mother (passed when 87 years old) - stroke, colon cancer Social History Lives with , for 42 years. 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 Alcohol: At most, once per month Tobacco: Never a smoker Drugs: Never Physical Exam Vital Signs Vital Signs Date Time Temp Pulse Resp B/P (MAP) Pulse Ox O2 Delivery O2 Flow Rate FiO2 03/10/17 08:00 97.7 73 17 113/59 (77) 93 03/10/17 04:51 97.4 70 18 119/67 (84) 96 03/10/17 00:55 98.0 77 18 116/54 (74) 93 03/10/17 00:00 82 19 115/59 (77) 94 Nasal Cannula 4 03/09/17 23:45 82 19 125/61 (82) 93 Nasal Cannula 4 03/09/17 23:30 99.0 82 19 127/65 (85) 93 Nasal Cannula 4 03/09/17 20:54 97.8 72 18 116/71 (86) 94 03/09/17 16:00 99.1 86 16 143/67 (92) 95 03/09/17 15:40 Physical Exam GENERAL: This is a well-nourished, well-developed, obese patient, in no apparent distress after surgery this am. SKIN: No rashes, ecchymoses or lesions. Warm and dry. HEAD: Atraumatic. Normocephalic. EYES: Pupils equal round. Extraocular motions intact. No scleral icterus. No injection or drainage. ENT: Nose without bleeding, purulent drainage or septal hematoma. Airway patent. NECK: Trachea midline. No JVD or lymphadenopathy. Supple, nontender, no meningeal signs. CARDIOVASCULAR: Regular rate and rhythm without murmurs, gallops, or rubs. RESPIRATORY: Clear to auscultation. Breath sounds equal bilaterally. No wheezes , rales, or rhonchi. GASTROINTESTINAL: Abdomen soft, nondistended. Tenderness upon palpation in all quadrants, most severe in right lower quadrant, despite morphine on admission. Some guarding. Now nontender. steristrips in place MUSCULOSKELETAL: Extremities without clubbing, cyanosis, or edema. No joint tenderness, effusion, or edema noted. No calf tenderness. NEUROLOGICAL: Awake and alert. Cranial nerves II through XII intact. Motor and sensory grossly within normal limits. Normal speech. Laboratory Laboratory Tests Test 03/09/17 10:45 03/10/17 08:48 Urine Color LIGHT-YELLOW Urine Turbidity CLEAR Urine pH 7.5 Urine Specific [place] GREATER THAN 1.050 Urine Protein TRACE Urine Glucose (UA) NEG Urine Ketones NEG Urine Occult Blood NEG Urine Nitrite NEG Urine Bilirubin NEG Urine Urobilinogen LESS THAN 2.0 Urine Leukocyte Esterase SMALL Urine RBC 1 Urine WBC 2 Urine Squamous Epithelial Cells 14 Microscopic Urinalysis Comment CULT NOT INDICATED White Blood Count 13.5 Red Blood Count 4.67 Hemoglobin 13.9 Hematocrit 40.0 Mean Corpuscular Volume 85.7 Mean Corpuscular Hemoglobin 29.8 Mean Corpuscular Hemoglobin Concent 34.7 Red Cell Distribution Width 13.6 Platelet Count 209 Mean Platelet Volume 8.6 Neutrophils (%) (Auto) 91.4 Lymphocytes (%) (Auto) 4.2 Monocytes (%) (Auto) 4.0 Eosinophils (%) (Auto) 0.0 Basophils (%) (Auto) 0.4 Neutrophils # (Auto) 12.4 Lymphocytes # (Auto) 0.6 Monocytes # (Auto) 0.5 Eosinophils # (Auto) 0.0 Basophils # (Auto) 0.1 CBC Comment DIFF FINAL Differential Comment Result Diagram: 03/10/17 0848 03/09/1744 Imaging Last Impressions Abdomen/Pelvis CT 03/09/17844 Signed Impressions: Service Date/Time: Thursday, March 09, 2017 10:09 - CONCLUSION: 1. Abnormal appendix diagnostic of acute appendicitis. There is surrounding inflammation and it is abnormally dilated. 2. There is a 3.2 cm left ovarian/adnexal cystic lesion. This presumably arises from the left ovary given the anatomic location. Since the patient is postmenopausal, suggest followup imaging in 6 months with ultrasound and comparison with any prior imaging studies. MD Zo Pena VTE Risk Assessment Caprini VTE Risk Assessment: Mod/High Risk (score >= 2) VTE Pharm Contraindication: Postop bleeding (surgery today) Caprini Risk Assessment Model Point Value = 1 Point Value = 2 Point Value = 3 Point Value = 5 Age 41-60 Minor surgery BMI > 25 kg/m2 Swollen legs Varicose veins or History of unexplained or recurrent spontaneous Oral contraceptives or hormone replacement Sepsis (< 1 month) Serious lung disease, including pneumonia (< 1 month) Abnormal pulmonary function Acute myocardial infarction Congestive heart failure (< 1 month) History of inflammatory bowel disease Medical patient at bed rest Age 61-74 Arthroscopic surgery Major open surgery (> 45 min) Laparoscopic surgery (> 45 min) Malignancy Confined to bed (> 72 hours) Immobilizing plaster cast Central venous access Age >= 75 History of VTE Family history of VTE Factor V Leiden Prothrombin [id number] Lupus anticoagulant Anticardiolipin antibodies Elevated serum homocysteine Heparin-induced thrombocytopenia Other congenital or acquired thrombophilia Stroke (< 1 month) Elective arthroplasty Hip, pelvis, or leg fracture Acute spinal cord injury (< 1 month) Prophylaxis Regimen Total Risk Factor Score Risk Level Prophylaxis Regimen 0-1 Low Early ambulation 2 Moderate Order ONE of the following: *Sequential Compression Device (SCD) *Heparin 5000 units SQ BID 3-4 Higher Order ONE of the following medications: *Heparin 5000 units SQ TID *Enoxaparin/Lovenox 40 mg SQ daily (WT < 150 kg, CrCl > 30 mL/min) *Enoxaparin/Lovenox 30 mg SQ daily (WT < 150 kg, CrCl > 10-29 mL/min) *Enoxaparin/Lovenox 30 mg SQ BID (WT < 150 kg, CrCl > 30 mL/min) AND/OR *Sequential Compression Device (SCD) 5 or more Highest Order ONE of the following medications: *Heparin 5000 units SQ TID (Preferred with Epidurals) *Enoxaparin/Lovenox 40 mg SQ daily (WT < 150 kg, CrCl > 30 mL/min) *Enoxaparin/Lovenox 30 mg SQ daily (WT < 150 kg, CrCl > 10-29 mL/min) *Enoxaparin/Lovenox 30 mg SQ BID (WT < 150 kg, CrCl > 30 mL/min) AND *Sequential Compression Device (SCD) Assessment and Plan Assessment and Plan Patient is 66 year old female who presents with right, lower abdominal pain since Thursday. CT with evidence of abnormal appendix diagnostic of acute appendicitis. Admit for appendectomy. Problem List: (1) Acute appendicitis ICD Codes: K35.80 - Unspecified acute appendicitis Status: Acute Plan: Patient with right lower abdominal pain since Thursday. CT with evidence of abnormal appendix diagnostic of acute appendicitis. Labs: * WBC 14.1 with 88% neutrophils. * Lipase 70. * AST/ALT 12/32. Imaging: * Abdomen/Pelvis CT: Abnormal appendix diagnostic of acute appendicitis. There is surrounding inflammation and it is abnormally dilated. There is a 3.2 cm left ovarian/adnexal cystic lesion. This presumably arises from the left ovary given the anatomic location. Since the patient is postmenopausal, suggest follow -up imaging in 6 months with ultrasound and comparison with any prior imaging studies. Orders: * Surgery done yesterday * eating lunch hopefully and then home * Zosyn 3.375 mg q8hr IV before surgery. * NS 1,000 ml at 100 mls/hr IV. * Acetaminophen 650mg q4hr PO PRN for Temp >100.4 and Pain 1-2. * [place] 5-325mg q4hr PO PRN Pain 3-5. * [place] 7.5-325mg q4hr PO PRN Pain 6-10. * Morphine 2mg q3hr IV PRN for Breakthrough pain. (2) HTN (hypertension) ICD Codes: I10 - Essential (primary) hypertension Status: Chronic Plan: Continue home medication. * Losartan 50mg daily PO. * Hydrochlorothiazide 12.5mg daily PO. (3) Asthma ICD Codes: J45.909 - Unspecified asthma, uncomplicated Status: Chronic Plan: Patient with some respiratory distress following previous surgery. She can follow up for her cough variant asthma as an outpt Medications: * DuoNeb 1 ampule q6hr PRN for shortness of breath and wheezing. * May consider steroids postoperatively. Orders: * Incentive spirometer. (4) Fluid, Electrolyte, Nutrition and Prophylaxis Status: Acute Plan: Fluids: * NS 1,000 ml at 100 mls/hr IV. Electrolytes: * Monitor and replete as necessary. Nutrition: * regular diet now Prophylaxis: * SCDs. * Prophylaxis not indicated at this time as patient is going home. Problem Qualifiers (1) Acute appendicitis: Qualified Codes: K35.80 - Unspecified acute appendicitis (2) HTN (hypertension): Qualified Codes: I10 - Essential (primary) hypertension Avril Trujillo MD Mar 10, 2017 09:26
[2017-03-10 09:38] LABS: ALKALINE PHOSPHATASE 66 U/L (45-117); ALT (GPT) 17 U/L (10-53); ANION GAP 9 MEQ/L (5-15); AST (GOT) 7 U/L (15-37); BICARBONATE 26.4 MEQ/L (21.0-32.0); BLOOD UREA NITROGEN 11 MG/DL (7-18); CHLORIDE 103 MEQ/L (98-107); GLOMERULAR FILTRATION RATE 54 ML/MIN (>89); POTASSIUM 3.6 MEQ/L (3.5-5.1); SODIUM (NA) 138 MEQ/L (136-145); TOTAL BILIRUBIN ADULT 1.1 MG/DL (0.2-1.0)
--- NOTE | 2017-03-10 09:45 | HHI.PR ---
Subjective Subjective Notes Resting in bed No issue Pain much improved today Objective Vitals/I&O Vital Signs Date Time Temp Pulse Resp B/P (MAP) Pulse Ox O2 Delivery O2 Flow Rate FiO2 03/10/17 08:00 97.7 73 17 113/59 (77) 93 03/10/17 00:00 Nasal Cannula 4 Labs Laboratory Tests Test 03/09/17 10:45 03/10/17 08:48 Urine Color LIGHT-YELLOW Urine Turbidity CLEAR Urine pH 7.5 Urine Specific [place] GREATER THAN 1.050 Urine Protein TRACE Urine Glucose (UA) NEG Urine Ketones NEG Urine Occult Blood NEG Urine Nitrite NEG Urine Bilirubin NEG Urine Urobilinogen LESS THAN 2.0 Urine Leukocyte Esterase SMALL Urine RBC 1 Urine WBC 2 Urine Squamous Epithelial Cells 14 Microscopic Urinalysis Comment CULT NOT INDICATED White Blood Count 13.5 Red Blood Count 4.67 Hemoglobin 13.9 Hematocrit 40.0 Mean Corpuscular Volume 85.7 Mean Corpuscular Hemoglobin 29.8 Mean Corpuscular Hemoglobin Concent 34.7 Red Cell Distribution Width 13.6 Platelet Count 209 Mean Platelet Volume 8.6 Neutrophils (%) (Auto) 91.4 Lymphocytes (%) (Auto) 4.2 Monocytes (%) (Auto) 4.0 Eosinophils (%) (Auto) 0.0 Basophils (%) (Auto) 0.4 Neutrophils # (Auto) 12.4 Lymphocytes # (Auto) 0.6 Monocytes # (Auto) 0.5 Eosinophils # (Auto) 0.0 Basophils # (Auto) 0.1 CBC Comment DIFF FINAL Differential Comment Blood Urea Nitrogen 11 Creatinine 1.03 Random Glucose 144 Total Protein 6.4 Albumin 3.0 Calcium Level 7.9 Alkaline Phosphatase 66 Aspartate Amino Transf (AST/SGOT) 7 Alanine Aminotransferase (ALT/SGPT) 17 Total Bilirubin 1.1 Sodium Level 138 Potassium Level 3.6 Chloride Level 103 Carbon Dioxide Level 26.4 Anion Gap 9 Estimat Glomerular Filtration Rate 54 Radiology Last 48 hours Impressions Abdomen/Pelvis CT 03/09/17 0845 Signed Impressions: Service Date/Time: Thursday, March 09, 2017 10:09 - CONCLUSION: 1. Abnormal appendix diagnostic of acute appendicitis. There is surrounding inflammation and it is abnormally dilated. 2. There is a 3.2 cm left ovarian/adnexal cystic lesion. This presumably arises from the left ovary given the anatomic location. Since the patient is postmenopausal, suggest followup imaging in 6 months with ultrasound and comparison with any prior imaging studies. José Miguel Banks MD Cardiovascular: Regular Lungs: Clear Abdomen: Other (lap sites c/d/i; abdomen soft; minimal post op pain ) Extremities: No edema A/P Assessment and Plan 66 year old female POD1 lap appy; gangrenous -Advance to regular diet -Pain control -Rx for pain medications on chart -Okay to shower tomorrow; no baths, swimming pool or beach - Follow up Thursday at 2PM Attending Note - Dr. Garcia Abdomen soft; steri strips intact without drainage Tolerating liquids; no fevers last night Patient instructed to call me if she has any fevers/chills/increased abdominal pain/constipation The exam, history, and the medical decision-making described in the above note were completed with the assistance of the mid-level provider. I reviewed and agree with the findings presented. I attest that I had a [id number] encounter with the patient on the same day, and personally performed and documented my assessment and findings in the medical record. Martha Andrea Mar 10, 2017 09:44 Chalino Garcia MD Mar 10, 2017 15:32
[2017-03-10] MEDS ORDERED: PNEUMOCOCCAL POLYVALENT INJ 25 MCG/0.5 ML SYR IM ONE (10:00)
--- NOTE | 2017-03-10 10:13 | MP ---
cc: CHALINO GARCIA M.D. DATE OF SURGERY 03/09/2017 PROCEDURE Laparoscopic appendectomy, primary umbilical hernia repair. PREOPERATIVE DIAGNOSIS Acute appendicitis POSTOPERATIVE DIAGNOSIS Gangrenous appendicitis without perforation ANESTHESIA General endotracheal SURGEON Chalino Garcia MD ESTIMATED BLOOD LOSS 10 mL FLUIDS 600 mL Crystalloid HOSPICE BEREAVEMENT COORDINATOR Jimbo Pickett CFA DRAINS None SPECIMEN Appendix to pathology. FINDINGS Gangrenous appendicitis without perforation PROCEDURE IN DETAIL The patient was taken to the operating room and placed on the operating table in the supine position. After an adequate level of general endotracheal anesthesia was achieved, the abdomen was prepped and draped in the usual fashion. Time-out was taken confirming the correct patient site and procedure to be performed. The skin and subcutaneous tissue was infiltrated with local anesthetic and an incision made in the umbilicus and carried through the fascia sharply. Preperitoneal fatty tissue that comprised an umbilical hernia was reduced into the abdominal cavity and the umbilical defect was opened slightly larger to allow for placement of a 12 mm balloon trocar. The trocar was inserted and the balloon inflated. The abdomen was insufflated. The patient was placed in Trendelenburg position. Two 5 mm trocars were then placed with the first in the right lower quadrant and the second in the suprapubic region. Both entered the abdominal cavity under direct vision uneventfully. Adhesion to the anterior abdominal wall was taken down with the harmonic scalpel which was comprised entirely of omentum. The omentum was then swept free from the cecum and a gangrenous appendix was noted. There was no perforation. Careful peeling away of the appendix from the omentum allowed for the mesoappendix to be divided with the harmonic scalpel back to the base of the appendix to where it was no longer gangrenous. A 0-PDS Endoloop was then brought in and placed over the appendix and cinched down at the base. The appendix was divided 1 cm distal to this and placed into an EndoCatch device. While observing via the right lower quadrant trocar site, the appendix was removed via the umbilical port and passed off the table. The pelvis was revisualized. The appendiceal stump was irrigated as was the pelvis. No bleeding was noted. The appendiceal stump was clean and dry. All irrigation was aspirated. With hemostasis assured, insufflation was discontinued. The right lower quadrant and suprapubic infraumbilical ports were removed under direct vision. During desufflation, no bleeding was noted from the port sites. The laparoscope was then removed. The fascia was closed in the umbilicus with simple interrupted and [id number] 0 Vicryl suture. The defect was completely closed. The remaining local anesthetic was injected into the umbilical port site as well as the two 5 mm trocar sites. The skin was closed at each of the trocar sites with 4-0 Vicryl in an interrupted buried fashion. All trocar sites were dressed with Steri-Strips. The patient was extubated and taken back to the recovery room in stable condition. She tolerated procedure well. MD PHILLIP Banerjee/JONA /11:22 PM /9:57 AM
[2017-03-10 12:00] VITALS: BP 150/82; PULSE 84; RESP 18; TEMP 98; O2SAT 96
--- NOTE | 2017-03-10 13:39 | HHI.DCPOC ---
Discharge Care Plan Diagnosis: (1) Acute appendicitis Goals to Promote Your Health * To prevent worsening of your condition and complications * To maintain your health at the optimal level Directions to Meet Your Goals Take your medications as prescribed Follow your dietary instruction Follow activity as directed Keep your appointments as scheduled Take your immunizations and boosters as scheduled If your symptoms worsen call your PCP, if no PCP go to Urgent Care Center or Emergency Room Smoking is Dangerous to Your Health. Avoid second hand smoke Call the 24-hour hour crisis hotline for domestic abuse at Hector Grajeda MD, R3 Mar 10, 2017 13:39
== END 2017-03-10 14:39 | disposition home or self-care (01) | DRG 343 ==
LOC: NEPC 08:25 → NEDA 12:20 → N07A 15:14
PROVIDERS: ADMIT Family Medicine; ATTEND Family Medicine
PROC: 0DTJ4ZZ Resection of Appendix, Percutaneous Endoscopic Approach (ICD-10-PCS; principal; 2017-03-09 22:14)
DX: K35.80 Unspecified acute appendicitis (principal); I10 Essential (primary) hypertension; J45.909 Unspecified asthma, uncomplicated; K42.9 Umbilical hernia without obstruction or gangrene; K57.90 Diverticulosis of intestine, part unspecified, without perforation or abscess without bleeding; Z23 Encounter for immunization
CPT/HCPCS: 74177; 80053; 81001; 83690; 85025; 85610; 85730; 88304; 90732; 93005; 94150; J2270; J2405; J2543; J7030; Q9967